=== PATIENT | male | born 1995 | race Caucasian/White ===

== ENCOUNTER 2017-11-20 16:58 | Emergency (ER) | payer MEDICAID ==
[~2017-11-20] VITALS: Ht 190.5 cm; Wt 70.5 kg
[2017-11-20 17:12] VITALS: BP 110/73
== END 2017-11-20 19:19 | disposition home or self-care (01) ==
LOC: ER 16:59
DX: J02.9 Acute pharyngitis, unspecified (principal)
CPT/HCPCS: 99281

== ENCOUNTER 2019-03-04 12:25 | Emergency (ER) | payer MEDICAID ==
[2019-03-04 12:42] VITALS: BP 122/76
== END 2019-03-04 12:59 | disposition home or self-care (01) ==
LOC: ER 12:25
DX: J06.9 Acute upper respiratory infection, unspecified (principal); F12.90 Cannabis use, unspecified, uncomplicated
CPT/HCPCS: 99281

== ENCOUNTER 2019-06-26 16:44 | Emergency (ER) | payer MEDICAID ==
[~2019-06-26] VITALS: Ht 188 cm; Wt 72.7 kg
[2019-06-26 16:55] VITALS: BP 132/75
[2019-06-26] MEDS ORDERED: ALBU8HFA PO (17:59)
[2019-06-26] MEDS ORDERED: HYDR-3686 PO (17:59)
== END 2019-06-26 18:12 | disposition home or self-care (01) ==
LOC: ER 16:44
DX: R07.89 Other chest pain (principal); R10.9 Unspecified abdominal pain
CPT/HCPCS: 71045; 99283

== ENCOUNTER 2019-06-27 20:17 | Emergency (ER) | payer MEDICAID ==
[~2019-06-27] VITALS: Ht 188 cm; Wt 73.0 kg
[~2019-06-27 20:17] MED LIST: ALBU8HFA PO; HYDR-3686 PO
[2019-06-27] MEDS ORDERED: cetirizine 10mg tablet PO STA (20:46)
[2019-06-27 21:23] VITALS: BP 141/99
== END 2019-06-27 21:25 | disposition home or self-care (01) ==
LOC: ER 20:18
DX: F41.9 Anxiety disorder, unspecified (principal); R06.02 Shortness of breath; R42 Dizziness and giddiness; R07.89 Other chest pain; F12.90 Cannabis use, unspecified, uncomplicated; Z79.899 Other long term (current) drug therapy
CPT/HCPCS: 93005; 99282; 99283

== ENCOUNTER → 2019-07-04 | Emergency (ER) | payer MEDICAID ==
[~2019-07-04] VITALS: Ht 188 cm; Wt 71.0 kg
[~2019-07-04] MED LIST changes: -HYDR-3686 PO
[2019-07-04 21:08] VITALS: BP 148/83
[2019-07-04 22:36] LABS: BASOPHILS # (AUTO) 0.1 X10'3 (0-0.2); HEMOGLOBIN 15.6 g/dl (14.0-17.9); MEAN PLATELET VOLUME 8.5 FL (7.4-10.4); PLATELET COUNT 239 X10'3 (140-440)
[2019-07-04 22:37] LABS: BASOPHILS % (AUTO) 0.9 % (0-1); EOSINOPHILS % (AUTO) 0.8 % (0-6); HEMATOCRIT 45.3 % (42.0-52.0); LYMPHOCYTES # (AUTO) 1.2 X10'3 (1.1-4.8); LYMPHOCYTES % (AUTO) 21.5 % (21-51); MEAN CORPUSCULAR HEMOGLOBIN 31.1 PG (27.0-31.0); MEAN CORPUSCULAR HGB CONC 34.5 g/dL (33.0-36.5); MEAN CORPUSCULAR VOLUME 90.3 FL (78-98); MONOCYTES # (AUTO) 0.4 X10'3 (0-0.9); MONOCYTES % (AUTO) 6.8 % (2-12); NEUTROPHILS # (AUTO) 4.1 X10'3 (1.8-7.7); RED BLOOD COUNT 5.02 X10'6 (4.70-6.10); RED CELL DISTRIBUTION WIDTH 13.3 % (11.5-14.5); WHITE BLOOD COUNT 5.8 X10'3 (4.5-11.0)
[2019-07-04 22:46] LABS: ALANINE AMINOTRANSFERASE 44 U/L (12-78); ALBUMIN 4.8 G/DL (3.4-5.0); ALBUMIN/GLOBULIN RATIO 1.5 (1.1-1.5); ALKALINE PHOSPHATASE 84 IU/L (46-116); ANION GAP 8 (8-16); ASPARTATE AMINO TRANSFERASE 25 U/L (10-37); BILIRUBIN,TOTAL 0.8 MG/DL (0.1-1.0); BLOOD UREA NITROGEN 11 MG/DL (7-18); BUN/CREATININE RATIO 14.1 (5.4-32.0); CALCIUM 9.8 MG/DL (8.5-10.1); CHLORIDE 103 MMOL/L (99-107); CREATININE 0.78 MG/DL (0.60-1.10); GLUCOSE 83 MG/DL (70-104); POTASSIUM 3.9 MMOL/L (3.5-5.1); SODIUM 141 MMOL/L (135-145); TOTAL CARBON DIOXIDE 29.6 MMOL/L (24-32); eGFR > 90 ML/MIN
[2019-07-04 23:10] LABS: PLATELET ESTIMATE NORMAL; TOTAL CELLS COUNTED 100
== END | disposition home or self-care (01) ==
LOC: ER 21:05
DX: F41.9 Anxiety disorder, unspecified (principal); R06.02 Shortness of breath; F12.90 Cannabis use, unspecified, uncomplicated; Z79.899 Other long term (current) drug therapy
CPT/HCPCS: 36415; 80053; 85025; 99283

== ENCOUNTER 2019-08-22 15:17 | Emergency (ER) | payer MEDICAID ==
[~2019-08-22] VITALS: Ht 188 cm; Wt 68.0 kg
[2019-08-22 15:28] VITALS: BP 122/70
[2019-08-22 16:22] LABS: CLARITY,URINE SLIGHTLY CLOUDY (Clear); COLOR,URINE YELLOW (Yellow); GLUCOSE, URINE NEGATIVE (Neg); KETONES,URINE 15 mg/dl (Neg); LEUKOCYTE ESTERASE ,URINE NEGATIVE (Neg); NITRITES, URINE NEGATIVE (Neg); OCCULT BLOOD,URINE NEGATIVE (Neg); PROTEIN,URINE 30 mg/dl (Neg); UROBILINOGEN,URINE 0.2 E.U/dL (0.2-1.0)
[2019-08-22 16:23] LABS: UA COLLECTION TYPE CLN CATCH MIDSTREAM
[2019-08-22] MEDS ORDERED: LIDOcaine 5% patch TP STA (16:25)
[2019-08-22] MEDS ORDERED: ketorolac tromethamine 15mg/ml inj. IM ONE (16:25)
[2019-08-22 16:33] LABS: MUCUS STRANDS MANY /LPF (Neg); SQUAMOUS EPITHELIAL CELL,UR NONE SEEN /LPF (FEW); TRANSITIONAL EPI CELLS,URINE FEW /HPF
[2019-08-22 16:34] LABS: BACTERIA,URINE NONE SEEN /HPF (Neg); RBC,URINE NONE SEEN /HPF (0-2); WBC,URINE 0-4 /HPF (0-4)
[2019-08-22 17:01] LABS: BASOPHILS % (AUTO) 0.7 % (0-1); EOSINOPHILS % (AUTO) 0.6 % (0-6); HEMATOCRIT 43.1 % (42.0-52.0); HEMOGLOBIN 14.3 g/dl (14.0-17.9); LYMPHOCYTES # (AUTO) 1.4 X10'3 (1.1-4.8); LYMPHOCYTES % (AUTO) 24.9 % (21-51); MEAN CORPUSCULAR HEMOGLOBIN 30.2 PG (27.0-31.0); MEAN CORPUSCULAR HGB CONC 33.3 g/dL (33.0-36.5); MEAN CORPUSCULAR VOLUME 90.6 FL (78-98); MEAN PLATELET VOLUME 8.6 FL (7.4-10.4); MONOCYTES # (AUTO) 0.4 X10'3 (0-0.9); MONOCYTES % (AUTO) 7.8 % (2-12); NEUTROPHILS # (AUTO) 3.7 X10'3 (1.8-7.7); PLATELET COUNT 203 X10'3 (140-440); RED BLOOD COUNT 4.76 X10'6 (4.70-6.10); WHITE BLOOD COUNT 5.6 X10'3 (4.5-11.0)
[2019-08-22 17:08] LABS: ALBUMIN 4.7 G/DL (3.4-5.0); ANION GAP 10 (8-16); BLOOD UREA NITROGEN 13 MG/DL (7-18); BUN/CREATININE RATIO 16.5 (5.4-32.0); CALCIUM 9.3 MG/DL (8.5-10.1); CHLORIDE 106 MMOL/L (99-107); CREATININE 0.79 MG/DL (0.60-1.10); GLUCOSE 84 MG/DL (70-104); POTASSIUM 3.9 MMOL/L (3.5-5.1); SODIUM 143 MMOL/L (135-145); TOTAL CARBON DIOXIDE 26.9 MMOL/L (24-32); eGFR > 90 ML/MIN
== END 2019-08-22 17:19 | disposition home or self-care (01) ==
LOC: ER 15:17
DX: S39.011A Strain of muscle, fascia and tendon of abdomen, initial encounter (principal); R30.0 Dysuria; R51 Headache; F41.9 Anxiety disorder, unspecified; F12.90 Cannabis use, unspecified, uncomplicated; X58.XXXA Exposure to other specified factors, initial encounter; Y93.89 Activity, other specified; Y92.89 Other specified places as the place of occurrence of the external cause; Y99.8 Other external cause status
CPT/HCPCS: 36415; 80048; 81001; 85025; 96372; 99283; J1885

== ENCOUNTER 2019-09-11 13:14 | Emergency (ER) | payer MEDICAID ==
[~2019-09-11] VITALS: Ht 188 cm; Wt 67.5 kg
[2019-09-11 13:21] VITALS: BP 113/64
== END 2019-09-11 16:34 | disposition home or self-care (01) ==
LOC: ER 13:15
DX: J02.8 Acute pharyngitis due to other specified organisms (principal); F41.9 Anxiety disorder, unspecified; F12.90 Cannabis use, unspecified, uncomplicated
CPT/HCPCS: 87081; 87880; 99283

== ENCOUNTER 2020-07-24 20:12 | Emergency (ER) | payer MEDICAID ==
[~2020-07-24] VITALS: Ht 190.5 cm; Wt 68.2 kg
[2020-07-24 23:32] VITALS: BP 106/46
== END 2020-07-24 23:34 | disposition home or self-care (01) ==
LOC: ER 20:13
DX: J02.9 Acute pharyngitis, unspecified (principal); F41.9 Anxiety disorder, unspecified; F17.200 Nicotine dependence, unspecified, uncomplicated; F12.90 Cannabis use, unspecified, uncomplicated
CPT/HCPCS: 71045; 87081; 87880; 99284

== ENCOUNTER 2020-08-21 09:24 | Emergency (ER) | payer MEDICAID ==
[~2020-08-21] VITALS: Ht 190.5 cm; Wt 72.7 kg
[2020-08-21] MEDS ORDERED: ketorolac tromethamine 15mg/ml inj. IM ONE (10:15)
[2020-08-21 12:25] VITALS: BP 105/55
== END 2020-08-21 12:38 | disposition home or self-care (01) ==
LOC: ER 09:25
DX: R07.89 Other chest pain (principal); F12.10 Cannabis abuse, uncomplicated
CPT/HCPCS: 71045; 93005; 96372; 99283; J1885

== ENCOUNTER 2021-06-29 17:23 | Emergency (ER) | payer MEDICAID ==
[~2021-06-29] VITALS: Ht 190.5 cm; Wt 75.0 kg
[2021-06-29 17:26] VITALS: BP 122/65
== END 2021-06-29 19:25 | disposition left against medical advice (07) ==
LOC: ER 17:24
DX: R10.2 Pelvic and perineal pain (principal); M54.9 Dorsalgia, unspecified

== ENCOUNTER 2023-07-16 14:20 | Emergency (ER) | payer MEDICAID ==
[~2023-07-16] VITALS: Ht 190.5 cm; Wt 75.5 kg
[2023-07-16 14:25] VITALS: BP 133/90; PULSE 78; O2SAT 99
[2023-07-16] MEDS ORDERED: DOXY-224 PO (15:01)
[2023-07-16] MEDS: CefTRIAXone 1000mg IM Kit (w/lidocaine diluent) IM ONE (15:21)
[2023-07-16] MEDS: azithromycin 250mg tablet PO ONE (15:21)
[2023-07-16 15:44] LABS: SYPHILIS SCREENING TEST POC NEGATIVE (Negative)
[2023-07-16 15:45] VITALS: RESP 14
[2023-07-16 15:47] VITALS: TEMP 98.6
[2023-07-18 22:39] LABS: CHLAMYDIA TRACHOMATIS, NAA Negative (Negative)
== END 2023-07-16 15:49 | disposition home or self-care (01) ==
LOC: ER 14:20
DX: A64 Unspecified sexually transmitted disease (principal); F12.90 Cannabis use, unspecified, uncomplicated; Z79.2 Long term (current) use of antibiotics
CPT/HCPCS: 36415; 87491; 87591; 96372; 99283; J0696

== ENCOUNTER 2024-07-31 16:16 | Outpatient (CLI) | payer MEDICAID ==
--- NOTE | 2024-07-31 17:17 | RADIOLOGY REPORT ---
X-ray left ankle Technique: AP lateral and oblique views REASON FOR EXAM: ACUTE LEFT ANKLE PAIN INDICATION: ACUTE LEFT ANKLE PAIN FINDINGS: No fractures or dislocations. No erosions or periosteal reaction. Articular surfaces are sm ooth. IMPRESSION: 1. No acute bony pathology
== END 2024-07-31 23:59 | disposition home or self-care (01) ==
LOC: RAD 16:16
PROVIDERS: ATTEND Family Medicine
DX: M25.572 Pain in left ankle and joints of left foot (principal)
CPT/HCPCS: 73610